=== PATIENT | female | born 1970 | race Two or more races ===

== ENCOUNTER 2022-11-14 10:44 | Inpatient (IN) | payer MEDICAID ==
[~2022-11-14] VITALS: Ht 154.9 cm; Wt 83.0 kg
[2022-11-14] MEDS ORDERED: FAMOTIDINE 20MG/2ML VIAL IV STA (11:01)
[2022-11-14] MEDS ORDERED: METOCLOPRAMIDE HCL 10MG/2ML VIAL IV STA (11:01)
[2022-11-14] MEDS ORDERED: MORPHINE SULFATE 4 MG/ML CPJ (NOT FOR IM USE) IV STA (11:01)
[2022-11-14] MEDS ORDERED: SODIUM CHLORIDE 0.9% 1,000 ML IV ONE (11:15)
[2022-11-14 11:55] LABS: BASOPHILS % 0.6 % (0.0-2.0); EOSINOPHILS % 0.1 % (0.0-5.0); HEMOGLOBIN. 16.8 g/dL (12.0-16.0); MEAN CORPUSCULAR HEMOGLOBIN 27.2 pg (28.0-32.0); MEAN CORPUSCULAR VOLUME 82.5 fL (81.0-99.0); MEAN PLATELET VOLUME 8.7 fl (7.4-10.4); MONOCYTES % 4.1 % (2.0-8.0); NEUTROPHILS % 81.2 % (40.0-76.0); PLATELET 309 x1000/uL (130-400); RED BLOOD CELL COUNT 6.18 mill/uL (4.2-5.4); RED CELL DISTRIBUTION WIDTH 14.4 % (11.6-14.6)
[2022-11-14 11:58] LABS: CHLORIDE 106 mEq/L (98-107)
[2022-11-14 12:01] LABS: PROTHROMBIN TIME 10.5 sec (9.6-11.0)
[2022-11-14] MEDS ORDERED: KCL 20MEQ/100ML PREMIX 100 ML IV ONE (12:15)
[2022-11-14] MEDS ORDERED: HYDRALAZINE 20MG/ML VIAL IV ONE (13:45)
[2022-11-14] MEDS ORDERED: ASPIRIN 325MG TABLET PO ONE (13:45)
[2022-11-14] MEDS ORDERED: MORPHINE SULFATE 4 MG/ML CPJ (NOT FOR IM USE) IV ONE (13:45)
[2022-11-14 17:23] LABS: CLARITY URINE CLEAR (CLEAR); COLOR URINE YELLOW (YELLOW); KETONES URINE NEGATIVE (NEGATIVE); LEUKOCYTE ESTERASE URINE NEGATIVE (NEGATIVE); NITRITE URINE NEGATIVE (NEGATIVE); OCCULT BLOOD URINE TRACE (NEGATIVE); PH URINE 7.5 (4.5-8.0); PROTEIN URINE 3+ (NEGATIVE); SPECIFIC GRAVITY URINE 1.009 (1.005-1.030); UROBILINOGEN URINE 0.2 E.U./dL (0.2-1.0)
[2022-11-14] MEDS ORDERED: AMLODIPINE 10MG TABLET PO ONE (18:15)
[2022-11-14] MEDS ORDERED: LABETALOL HCL VIAL 20 MG/4 ML VIAL IV ONE (18:15)
[2022-11-14] MEDS ORDERED: LABETALOL 5MG/ML SYR 20 MG/4 ML SYRINGE IV NR (18:30)
[2022-11-14] MEDS ORDERED: AMLODIPINE 5MG TABLET PO NR (18:30)
[2022-11-14] MEDS ORDERED: IPRATROPIUM/ALBUTEROL 0.5-3(2.5)MG/3ML NEB NEB PRN (20:30)
[2022-11-14] MEDS ORDERED: HYDRALAZINE 20MG/ML VIAL IV PRN (20:30)
[2022-11-14] MEDS ORDERED: CLONIDINE 0.1MG TABLET PO PRN (20:30)
[2022-11-14] MEDS ORDERED: ACETAMINOPHEN 325MG TABLET PO PRN (20:30)
[2022-11-14] MEDS ORDERED: CLONIDINE 0.1MG TABLET PO NR (20:30)
[2022-11-14] MEDS ORDERED: MAGNESIUM/ALUMINUM HYDROXIDE/SIMETHICONE 30ML UDC PO PRN (20:30)
[2022-11-14] MEDS ORDERED: ZOLPIDEM TARTRATE 5MG TABLET PO PRN (21:15)
[2022-11-14] MEDS ORDERED: KETOROLAC 15MG/ML VIAL IV PRN (21:15)
[2022-11-14] MEDS ORDERED: KCL 20MEQ/100ML PREMIX 100 ML IV NR (21:15)
[2022-11-14] MEDS: LISINOPRIL 10MG TABLET PO SCH (21:33)
[2022-11-14 22:10] LABS: FOLIC ACID (FOLATE) SERUM 7.5 ng/mL (>5.38)
[2022-11-14 23:08] LABS: CREATINE KINASE MB FRACTION 4.8 ng/mL (0.5-3.6)
[2022-11-15 00:10] VITALS: BP 155/77
[2022-11-15] MEDS ORDERED: DEXTROSE 50% WATER 50ML SYRINGE IV PRN (00:15)
[2022-11-15] MEDS: ACETAMINOPHEN 325MG TABLET PO PRN (02:41)
[2022-11-15 04:00] VITALS: BP 149/90
[2022-11-15] MEDS: BLOOD SUGAR DIAGNOSTIC STRIP TEST SCH ×4 (06:22→20:55)
[2022-11-15] MEDS: INSULIN LISPRO 100 UNITS/ML SUBCUT SCH ×4 (06:22→21:15)
[2022-11-15] MEDS: LISINOPRIL 10MG TABLET PO SCH ×2 (06:23→16:55)
[2022-11-15 06:41] LABS: BASOPHILS % 0.3 % (0.0-2.0); EOSINOPHILS % 0.1 % (0.0-5.0); HEMATOCRIT. 49.2 % (36.0-48.0); HEMOGLOBIN. 16.3 g/dL (12.0-16.0); LYMPHOCYTES % 9.9 % (20.0-50.0); MEAN CORPUSCULAR HEMOGLOBIN 27.2 pg (28.0-32.0); MEAN CORPUSCULAR VOLUME 82.1 fL (81.0-99.0); MEAN PLATELET VOLUME 8.6 fl (7.4-10.4); MONOCYTES % 5.7 % (2.0-8.0); PLATELET 321 x1000/uL (130-400); RED CELL DISTRIBUTION WIDTH 14.3 % (11.6-14.6)
[2022-11-15 08:00] VITALS: BP 116/73
[2022-11-15] MEDS: PANTOPRAZOLE SODIUM 40 MG/VIAL IV SCH (08:28)
[2022-11-15] MEDS: ASPIRIN 81MG EC TABLET PO SCH (08:28)
[2022-11-15] MEDS ORDERED: AMLODIPINE 10MG TABLET PO SCH (09:00)
[2022-11-15] MEDS ORDERED: LISINOPRIL 5MG TABLET PO SCH (09:00)
[2022-11-15] MEDS ORDERED: ENOXAPARIN 30MG/0.3ML SYR SUBCUT SCH (09:00)
[2022-11-15 12:00] VITALS: BP 127/67
[2022-11-15] MEDS: CARVEDILOL 6.25 MG TABLET PO SCH ×2 (12:03→21:02)
[2022-11-15 12:22] LABS: *AMPHETAMINES SCREEN URINE NEGATIVE (NEGATIVE); *BARBITURATES SCREEN URINE NEGATIVE (NEGATIVE); *BENZODIAZEPINES SCREEN URINE NEGATIVE (NEGATIVE); *COCAINE SCREEN URINE PRESUMTIVE POSITIVE (NEGATIVE); CANNABINOID URINE SCREEN NEGATIVE (NEGATIVE); METHADONE URINE SCREEN NEGATIVE (NEGATIVE); OPIATES URINE SCREEN PRESUMTIVE POSITIVE (NEGATIVE); PHENCYCLIDINE URINE SCREEN NEGATIVE (NEGATIVE)
[2022-11-15 14:39] LABS: *AMPHETAMINES SCREEN URINE NEGATIVE (NEGATIVE); *BARBITURATES SCREEN URINE NEGATIVE (NEGATIVE); *BENZODIAZEPINES SCREEN URINE NEGATIVE (NEGATIVE); *COCAINE SCREEN URINE PRESUMTIVE POSITIVE (NEGATIVE); CANNABINOID URINE SCREEN PRESUMTIVE POSITIVE (NEGATIVE); METHADONE URINE SCREEN NEGATIVE (NEGATIVE); OPIATES URINE SCREEN PRESUMTIVE POSITIVE (NEGATIVE); PHENCYCLIDINE URINE SCREEN NEGATIVE (NEGATIVE)
[2022-11-15 15:48] LABS: CHLORIDE 104 mEq/L (98-107)
[2022-11-15 16:00] VITALS: BP 105/74
[2022-11-15 16:02] LABS: CREATINE KINASE 59 IU/L (26-192); HDL CHOLESTEROL 53 mg/dL (40-59); LDL CHOLESTEROL 178 mg/dL (5-100); PHOSPHORUS 2.9 mg/dL (2.5-4.9); T4 FREE 1.14 ng/dL (0.76-1.46)
[2022-11-15] MEDS ORDERED: POTASSIUM CHLORIDE 20MEQ/PACKET PO NR (19:00)
[2022-11-15 20:00] VITALS: BP 192/85
[2022-11-15] MEDS ORDERED: IPRATROPIUM BROMIDE (0.02%) 0.5MG/2.5ML NEB HHN PRN (20:15)
[2022-11-15] MEDS ORDERED: ALBUTEROL (0.083%) 2.5MG/3ML NEB HHN PRN (20:15)
[2022-11-15] MEDS ORDERED: ATORVASTATIN CALCIUM 40MG TABLET PO SCH (21:00)
[2022-11-15] MEDS ORDERED: ONDANSETRON HCL 4MG/2ML INJ IV PRN (23:00)
[2022-11-16] VITALS: BP 159/114
[2022-11-16] MEDS: ACETAMINOPHEN 325MG TABLET PO PRN (00:26)
[2022-11-16] MEDS ORDERED: CLONIDINE 0.2MG TABLET PO PRN (03:10)
[2022-11-16] MEDS ORDERED: SENNOSIDES/DOCUSATE SOD 8.6/50MG TABLET PO NR (03:15)
[2022-11-16 04:00] VITALS: BP 199/114
[2022-11-16] MEDS: LISINOPRIL 10MG TABLET PO SCH (06:00)
[2022-11-16] MEDS: INSULIN LISPRO 100 UNITS/ML SUBCUT SCH ×2 (06:33→12:05)
[2022-11-16] MEDS ORDERED: SENNOSIDES/DOCUSATE SOD 8.6/50MG TABLET PO SCH (06:45)
[2022-11-16 08:00] VITALS: BP 93/55
[2022-11-16] MEDS: PANTOPRAZOLE SODIUM 40 MG/VIAL IV SCH (09:00)
[2022-11-16] MEDS: CARVEDILOL 6.25 MG TABLET PO SCH (09:00)
[2022-11-16] MEDS ORDERED: ENOXAPARIN 40MG/0.4ML SYR SUBCUT SCH (09:00)
[2022-11-16] MEDS: ASPIRIN 81MG EC TABLET PO SCH (09:10)
[2022-11-16] MEDS: BLOOD SUGAR DIAGNOSTIC STRIP TEST SCH (11:04)
[2022-11-16 11:32] LABS: CREATINE KINASE MB FRACTION 7.7 ng/mL (0.5-3.6)
[2022-11-16] MEDS ORDERED: ASPI-1406 PO (11:47)
[2022-11-16] MEDS ORDERED: LISI10TA26 PO (11:47)
[2022-11-16] MEDS ORDERED: COR6 PO (11:47)
[2022-11-16] MEDS ORDERED: LIP40 PO (11:47)
[2022-11-16] MEDS ORDERED: AMLO10TA4 MT (11:47)
[2022-11-16 12:00] VITALS: BP 132/78
[2022-11-16 13:39] VITALS: BP 132/78
== END 2022-11-16 14:26 | disposition home or self-care (01) | DRG 241 ==
LOC: ER 11:12 → 7EST 18:10 → EDBEDREQTM 18:14 → EDBEDREQ 18:14
PROVIDERS: ADMIT Internal Medicine; ATTEND Internal Medicine
DX: K29.70 Gastritis, unspecified, without bleeding (principal); I21.A1 Myocardial infarction type 2; I16.1 Hypertensive emergency; M94.0 Chondrocostal junction syndrome [Tietze]; N39.0 Urinary tract infection, site not specified; I69.354 Hemiplegia and hemiparesis following cerebral infarction affecting left non-dominant side; E78.5 Hyperlipidemia, unspecified; N20.0 Calculus of kidney; I10 Essential (primary) hypertension; F17.210 Nicotine dependence, cigarettes, uncomplicated; Z59.01 Sheltered homelessness; Z79.82 Long term (current) use of aspirin; Z91.14 Patient's other noncompliance with medication regimen; F12.10 Cannabis abuse, uncomplicated; F14.10 Cocaine abuse, uncomplicated
CPT/HCPCS: 36415; 71045; 74176; 76705; 76770; 80053; 80061; 80305; 81003; 82550; 82553; 82607; 82746; 82962; 83036; 83540; 83550; 83735; 84100; 84439; 84443; 84484; 85025; 93005; 93306; 97116; 97162; 99291; C9113; J0360; J1650; J1815; J1885; J2270; J2405; J2765; J3480; J3490; J7030

== ENCOUNTER 2022-12-12 21:07 | Emergency (ER) | payer MEDICAID ==
[~2022-12-12] VITALS: Ht 157.5 cm; Wt 86.5 kg
[~2022-12-12 21:07] MED LIST: AMLO10TA4 MT; ASPI-1406 PO; COR6 PO; LIP40 PO; LISI10TA26 PO
[2022-12-12 21:54] VITALS: BP 118/76
[2022-12-12 23:24] LABS: CLARITY URINE CLOUDY (CLEAR); COLOR URINE YELLOW (YELLOW); KETONES URINE NEGATIVE (NEGATIVE); LEUKOCYTE ESTERASE URINE 3+ (NEGATIVE); NITRITE URINE POSITIVE (NEGATIVE); OCCULT BLOOD URINE 1+ (NEGATIVE); PH URINE 6.5 (4.5-8.0); PROTEIN URINE 1+ (NEGATIVE)
[2022-12-13 00:17] LABS: CHLORIDE 111 mEq/L (98-107)
[2022-12-13 00:22] LABS: BASOPHILS % 0.9 % (0.0-2.0); HEMATOCRIT. 43.1 % (36.0-48.0); HEMOGLOBIN. 14.2 g/dL (12.0-16.0); LYMPHOCYTES % 15.1 % (20.0-50.0); MEAN CORPUSCULAR HEMOGLOBIN 27.6 pg (28.0-32.0); MEAN CORPUSCULAR VOLUME 83.5 fL (81.0-99.0); MEAN PLATELET VOLUME 8.2 fl (7.4-10.4); MONOCYTES % 5.9 % (2.0-8.0); NEUTROPHILS % 78.1 % (40.0-76.0); PLATELET 311 x1000/uL (130-400); RED BLOOD CELL COUNT 5.16 mill/uL (4.2-5.4); RED CELL DISTRIBUTION WIDTH 14.5 % (11.6-14.6)
== END 2022-12-13 01:10 | disposition left against medical advice (07) ==
LOC: ER 21:07
DX: Z53.21 Procedure and treatment not carried out due to patient leaving prior to being seen by health care provider (principal)
CPT/HCPCS: 36415; 80053; 81003; 85025; 87077; 87186; 99281; 99283

== ENCOUNTER 2023-08-16 05:24 | Emergency (ER) | payer MEDICAID ==
[~2023-08-16] VITALS: Ht 157.5 cm; Wt 66.0 kg
[2023-08-16] MEDS ORDERED: ALBUTEROL (0.083%) 2.5MG/3ML NEB HHN STA (05:38)
[2023-08-16] MEDS ORDERED: MAGNESIUM 2 G PREMIX 50 ML IV STA (05:38)
[2023-08-16] MEDS ORDERED: IPRATROPIUM BROMIDE (0.02%) 0.5MG/2.5ML NEB HHN STA (05:38)
[2023-08-16] MEDS ORDERED: METHYLPREDNISOLONE SOD SUCC 125MG/2ML (ACT-O-VIAL) IV STA (05:38)
[2023-08-16 05:57] LABS: BASOPHILS % 0.7 % (0.0-2.0); HEMATOCRIT. 37.3 % (36.0-48.0); LYMPHOCYTES % 11.3 % (20.0-50.0); MEAN CORPUSCULAR HEMOGLOBIN 26.2 pg (28.0-32.0); MEAN CORPUSCULAR HGB CONC 32.1 g/dL (31.0-37.0); MEAN CORPUSCULAR VOLUME 81.6 fL (81.0-99.0); MEAN PLATELET VOLUME 6.6 fl (7.4-10.4); MONOCYTES % 6.7 % (2.0-8.0); NEUTROPHILS % 81.3 % (40.0-76.0); PLATELET 507 x1000/uL (130-400); RED BLOOD CELL COUNT 4.57 mill/uL (4.2-5.4); WHITE BLOOD COUNT 10.4 x1000/uL (4.5-11.0)
[2023-08-16 06:16] LABS: ALANINE AMINOTRANSFERASE 10 IU/L (10-49); ALBUMIN 3.2 g/dL (3.2-4.8); ASPARTATE AMINOTRANSFERASE 13 IU/L (<34); BILIRUBIN TOTAL 0.2 mg/dL (0.1-1.0); CALCIUM 9.3 mg/dL (8.7-10.4); CARBON DIOXIDE 21 mEq/L (21-32); CHLORIDE 105 mEq/L (98-107); CREATININE 0.6 mg/dL (0.6-1.0); GLUCOSE 148 mg/dL (70-105); PROTEIN TOTAL 5.8 g/dL (6.0-8.3); SODIUM 138 mEq/L (136-145); UREA NITROGEN BLOOD 6 mg/dL (9-23)
[2023-08-16 06:26] LABS: TROPONIN I HIGH SENSITIVITY 93 ng/L (3.0-34)
[2023-08-16 06:32] VITALS: PULSE 90; RESP 20; O2SAT 100
[2023-08-16] MEDS ORDERED: POTASSIUM CHLORIDE 20MEQ/PACKET PO ONE ×2 (06:45→07:15)
[2023-08-16] MEDS ORDERED: POTASSIUM CHLORIDE INJ 40 MEQ in DEXT 5% WATER 500 ML IV ONE (06:45)
[2023-08-16] MEDS ORDERED: ENOXAPARIN 60MG/0.6ML SYR SUBCUT ONE (06:45)
[2023-08-16] MEDS ORDERED: ONDANSETRON HCL 4MG/2ML INJ IV PRN (09:30)
[2023-08-16] MEDS ORDERED: CLONIDINE 0.1MG TABLET PO PRN (09:30)
[2023-08-16] MEDS ORDERED: MAGNESIUM/ALUMINUM HYDROXIDE/SIMETHICONE 30ML UDC PO PRN (09:30)
[2023-08-16] MEDS ORDERED: DOCUSATE SODIUM 100MG CAPSULE PO PRN (09:30)
[2023-08-16] MEDS ORDERED: IPRATROPIUM/ALBUTEROL 0.5-3(2.5)MG/3ML NEB HHN PRN (09:30)
[2023-08-16] MEDS ORDERED: ACETAMINOPHEN 325MG TABLET PO PRN ×2 (09:30)
[2023-08-16] MEDS ORDERED: GUAIFENESIN 200MG/10ML SUGAR FREE UDC PO PRN (09:30)
[2023-08-16] MEDS ORDERED: IPRATROPIUM/ALBUTEROL 0.5-3(2.5)MG/3ML NEB HHN SCH (10:00)
[2023-08-16] MEDS ORDERED: AZITHROMYCIN 500MG/250ML 250 ML IV ONE (10:15)
[2023-08-16] MEDS ORDERED: BUDESONIDE 0.5MG/2ML NEB HHN SCH (10:15)
[2023-08-16] MEDS ORDERED: CEFTRIAXONE 1GM PREMIX 50 ML IV SCH (11:00)
[2023-08-16] MEDS ORDERED: DOXYCYCLINE 100 MG in DEXT 5% WATER 100 ML IV SCH (11:00)
[2023-08-16 12:13] LABS: PHOSPHORUS 3.2 mg/dL (2.5-4.9)
[2023-08-16 12:53] LABS: POTASSIUM 2.2 mEq/L (3.5-5.1)
[2023-08-16] MEDS ORDERED: KCL 20MEQ/100ML PREMIX 100 ML IV NR (13:15)
[2023-08-16 13:17] LABS: BG BASE EXCESS -0.3 mmol/L (-2.0-2.0); BG CARBOXYHEMOGLOBIN 1.7 % (0.5-1.5); BG FRACTION INSPIRED OXYGEN 28; BG HCO3 ACT 24.3 mmol/L (22.0-26.0); BG METHEMOGLOBIN 0.2 % (0.0-1.5); BG OXYHEMOGLOBIN 97.1 % (94.0-97.0); BG PCO2 39.5 mmHg (35.0-45.0); BG PH 7.406 (7.350-7.450); BG PO2 143.4 mmHg (75.0-100.0); BG SAMPLE SITE RIGHT RADIAL; BG TOTAL HEMOGLOBIN 12.7 g/dL (12.0-18.0); BG VENT MODE NASAL CANNULA
[2023-08-16] MEDS ORDERED: POTASSIUM CHLORIDE 20MEQ/PACKET PO NR ×2 (13:30→16:00)
[2023-08-16] MEDS ORDERED: AMLODIPINE 10MG TABLET PO SCH (13:45)
[2023-08-16] MEDS ORDERED: AMLODIPINE 5MG TABLET PO SCH (14:01)
[2023-08-16 14:45] VITALS: PULSE 89; RESP 22; O2SAT 98
[2023-08-16 16:33] VITALS: BP 120/77; PULSE 81; RESP 15; TEMP 98.1
[2023-08-16] MEDS ORDERED: METHYLPREDNISOLONE SOD SUCC 40MG/ML (ACT-O-VIAL) IV SCH (18:00)
[2023-08-16] MEDS ORDERED: FAMOTIDINE 20MG TABLET PO SCH (21:00)
[2023-08-16] MEDS ORDERED: ATORVASTATIN CALCIUM 40MG TABLET PO SCH (21:00)
[2023-08-17] MEDS ORDERED: ENOXAPARIN 40MG/0.4ML SYR SUBCUT SCH (07:00)
[2023-08-17] MEDS ORDERED: ASPIRIN 81MG EC TABLET PO SCH (09:00)
== END 2023-08-16 16:34 | disposition left against medical advice (07) ==
LOC: ER 05:24 → SUPCPDRO 09:30 → CANBEDREQ 16:10 → ER 16:34
DX: I21.4 Non-ST elevation (NSTEMI) myocardial infarction (principal); E87.6 Hypokalemia; J44.9 Chronic obstructive pulmonary disease, unspecified; I10 Essential (primary) hypertension; F12.90 Cannabis use, unspecified, uncomplicated
CPT/HCPCS: 80053; 83880; 83735; 84100; 84132; 85025; 85379; 84484; 36415; 84145; 71045; 93970; 94640; 82805; 82375; 93005; 94644; 96367; 96368; 96365; 96366; 96372; 96375; 99285; 36600; J0696; J3490; J1650; J3475; J2930; J3480 ×2; Z7610 ×6; J7060 ×2